=== PATIENT | female | born 1995 | race Caucasian/White ===

== ENCOUNTER 2017-07-08 03:43 | Emergency (ER) | payer OTHER ==
[2017-07-08 07:26] LABS: ADD MAN DIFF? NO
[2017-07-08 07:31] LABS: ADD UMIC YES; BASOPHIL # 0.1 10^3/ul (0.0-0.1); BASOPHILS % 0.5 % (0.0-2.0); EOSINOPHILS # 0.2 10^3/ul (0.0-0.5); EOSINOPHILS % 1.9 % (0.0-7.0); HEMOGLOBIN 11.4 g/dl (12.0-16.0); LYMPHOCYTES # 2.3 10^3/ul (0.8-2.9); LYMPHOCYTES % 23.9 % (15.0-51.0); MEAN CORPUSCULAR HEMOGLOBIN 26.3 pg (29.0-33.0); MEAN CORPUSCULAR HGB CONC 31.7 g/dl (32.0-37.0); MEAN CORPUSCULAR VOLUME 82.9 fl (82.0-101.0); MEAN PLATELET VOLUME 10.2 fl (7.4-10.4); MONOCYTE # 0.6 10^3/ul (0.3-0.9); MONOCYTES % 5.8 % (0.0-11.0); NEUTROPHIL # 6.4 10^3/ul (1.6-7.5); NEUTROPHILS % 67.7 % (39.0-77.0); PLATELET COUNT 404 10^3/UL (140-415); RED BLOOD COUNT 4.34 10^6/ul (4.20-5.40); RED CELL DISTRIBUTION WIDTH 16.1 % (11.5-14.5); UR ASCORBIC ACID NEGATIVE (NEGATIVE); UR BILIRUBIN (Dip) NEGATIVE (NEGATIVE); UR BLOOD (Dip) 2+ mg/dL (NEGATIVE); UR CLARITY CLEAR (CLEAR); UR COLOR YELLOW (YELLOW); UR GLUCOSE (Dip) NEGATIVE (NEGATIVE); UR KETONES (Dip) NEGATIVE (NEGATIVE); UR LEUKOCYTE ESTERASE (Dip) NEGATIVE Leu/ul (NEGATIVE); UR NITRITE (Dip) NEGATIVE (NEGATIVE); UR RBC 0 /HPF (0-5); UR SPECIFIC GRAVITY (Dip) 1.013 (1.003-1.030); UR TOTAL PROTEIN (Dip) NEGATIVE (NEGATIVE); UR UROBILINOGEN (Dip) NEGATIVE (NEGATIVE); UR WBC 0 /HPF (0-5)
[2017-07-08 07:31] LABS: WHITE BLOOD COUNT 9.5 10^3/ul (4.8-10.8)
== END 2017-07-08 08:40 | disposition home or self-care (01) ==
LOC: FTE 03:43
DX: O20.0 Threatened abortion (principal); Z3A.01 Less than 8 weeks gestation of pregnancy
CPT/HCPCS: 36415; 76801; 76817; 81001; 84702; 85025; 86900; 86901; 99284-25

== ENCOUNTER 2017-07-12 07:54 | Emergency (ER) | payer OTHER ==
[2017-07-12] MEDS: ONDANSETRON 4 MG INJ IV ×3 (08:47→14:42)
[2017-07-12] MEDS: HYDROCODONE/APAP (5/325) TAB PO (08:47)
[2017-07-12] MEDS: SOD CHLORIDE 0.9% 1,000 ML IV ×2 (08:48→14:19)
[2017-07-12] MEDS: HYDROmorphONE 1 MG/ML SYG IV ×2 (11:06→14:42)
[2017-07-12 14:42] LABS: ADD MAN DIFF? NO
[2017-07-12 14:43] LABS: BASOPHIL # 0.1 10^3/ul (0.0-0.1); BASOPHILS % 0.4 % (0.0-2.0); EOSINOPHILS # 0.1 10^3/ul (0.0-0.5); EOSINOPHILS % 1.1 % (0.0-7.0); HEMATOCRIT 35.4 % (37.0-47.0); HEMOGLOBIN 11.3 g/dl (12.0-16.0); LYMPHOCYTES # 2.1 10^3/ul (0.8-2.9); LYMPHOCYTES % 17.2 % (15.0-51.0); MEAN CORPUSCULAR HEMOGLOBIN 26.8 pg (29.0-33.0); MEAN CORPUSCULAR HGB CONC 31.9 g/dl (32.0-37.0); MEAN CORPUSCULAR VOLUME 84.1 fl (82.0-101.0); MEAN PLATELET VOLUME 10.9 fl (7.4-10.4); MONOCYTE # 0.7 10^3/ul (0.3-0.9); MONOCYTES % 6.1 % (0.0-11.0); NEUTROPHILS % 74.8 % (39.0-77.0); PLATELET COUNT 420 10^3/UL (140-415); RED BLOOD COUNT 4.21 10^6/ul (4.20-5.40); RED CELL DISTRIBUTION WIDTH 16.2 % (11.5-14.5)
== END 2017-07-12 17:03 | disposition home or self-care (01) ==
LOC: E/R 07:54
DX: O03.4 Incomplete spontaneous abortion without complication (principal); R10.2 Pelvic and perineal pain
CPT/HCPCS: 36415; 76801; 76817; 84702; 85025; 86900; 86901; 96374; 96375; 96376; 99285-25

== ENCOUNTER 2018-05-17 16:39 | Outpatient (CLI) | payer OTHER ==
[2018-05-17 18:05] LABS: ADD UMIC NO; UR ASCORBIC ACID NEGATIVE (NEGATIVE); UR BILIRUBIN (Dip) NEGATIVE (NEGATIVE); UR BLOOD (Dip) NEGATIVE (NEGATIVE); UR CLARITY CLEAR (CLEAR); UR COLOR YELLOW (YELLOW); UR GLUCOSE (Dip) NEGATIVE (NEGATIVE); UR KETONES (Dip) NEGATIVE (NEGATIVE); UR LEUKOCYTE ESTERASE (Dip) NEGATIVE Leu/ul (NEGATIVE); UR NITRITE (Dip) NEGATIVE (NEGATIVE); UR SPECIFIC GRAVITY (Dip) 1.012 (1.003-1.030); UR TOTAL PROTEIN (Dip) NEGATIVE (NEGATIVE); UR UROBILINOGEN (Dip) NEGATIVE (NEGATIVE)
== END 2018-05-17 18:30 | disposition home or self-care (01) ==
LOC: OBT 16:39 → L-D 16:40 → OBT 18:30
DX: O26.892 Other specified pregnancy related conditions, second trimester (principal); Z3A.26 26 weeks gestation of pregnancy; R10.2 Pelvic and perineal pain
CPT/HCPCS: 76815; 76817; 81003

== ENCOUNTER 2018-08-09 12:24 | Outpatient (CLI) | payer OTHER | END 2018-08-09 15:51 | disposition home or self-care (01) | LOC: OBT 12:24 → L-D 12:25 → OBT 15:51 | DX: O36.8130 Decreased fetal movements, third trimester, not applicable or unspecified (principal); Z3A.38 38 weeks gestation of pregnancy | CPT/HCPCS: 76818 ==

== ENCOUNTER 2018-08-15 08:01 | Inpatient (IN) | payer OTHER ==
[2018-08-15] MEDS ORDERED: METHYLERGONOVINE 0.2 MG INJ IM (08:30)
[2018-08-15] MEDS ORDERED: MISOPROSTOL 200 MCG TAB PR (08:30)
[2018-08-15] MEDS ORDERED: CARBOPROST 250 MCG INJ IM (08:30)
[2018-08-15] MEDS ORDERED: LIDOCAINE 1% (MPF) 30 ML INJ INJ (08:30)
[2018-08-15 09:21] LABS: ADD MAN DIFF? NO
[2018-08-15 09:23] LABS: WHITE BLOOD COUNT 8.4 10^3/ul (4.8-10.8)
[2018-08-15 09:23] LABS: BASOPHILS % 0.4 % (0.0-2.0); EOSINOPHILS # 0.1 10^3/ul (0.0-0.5); EOSINOPHILS % 0.6 % (0.0-7.0); HEMATOCRIT 32.4 % (37.0-47.0); LYMPHOCYTES # 1.9 10^3/ul (0.8-2.9); MEAN CORPUSCULAR HEMOGLOBIN 23.8 pg (29.0-33.0); MEAN CORPUSCULAR HGB CONC 30.9 g/dl (32.0-37.0); MEAN CORPUSCULAR VOLUME 77.1 fl (82.0-101.0); MEAN PLATELET VOLUME 11.4 fl (7.4-10.4); MONOCYTE # 0.6 10^3/ul (0.3-0.9); NEUTROPHIL # 5.8 10^3/ul (1.6-7.5); NEUTROPHILS % 68.5 % (39.0-77.0); PLATELET COUNT 409 10^3/UL (140-415); RED CELL DISTRIBUTION WIDTH 16.9 % (11.5-14.5)
[2018-08-15 09:30] LABS: ADD UMIC NO; UR ASCORBIC ACID NEGATIVE (NEGATIVE); UR BACTERIA FEW /HPF (NONE SEEN); UR BILIRUBIN (Dip) NEGATIVE (NEGATIVE); UR BLOOD (Dip) NEGATIVE (NEGATIVE); UR CLARITY SLIGHTLY CLOUDY (CLEAR); UR COLOR AMBER (YELLOW); UR GLUCOSE (Dip) NEGATIVE (NEGATIVE); UR KETONES (Dip) NEGATIVE (NEGATIVE); UR LEUKOCYTE ESTERASE (Dip) NEGATIVE Leu/ul (NEGATIVE); UR MUCUS MANY /HPF (NONE SEEN); UR NITRITE (Dip) NEGATIVE (NEGATIVE); UR RBC 2 /HPF (0-5); UR SPECIFIC GRAVITY (Dip) 1.029 (1.003-1.030); UR SQUAMOUS EPITHELIAL CELL MANY /HPF (FEW); UR TOTAL PROTEIN (Dip) NEGATIVE (NEGATIVE); UR UROBILINOGEN (Dip) NEGATIVE (NEGATIVE); UR WBC 3 /HPF (0-5)
[2018-08-15] MEDS: LACTATED RINGER'S 1,000 ML IV ×2 (09:46→21:52)
[2018-08-15 09:50] LABS: ALANINE AMINOTRANSFERASE 27 IU/L (13-69); ALBUMIN 3.5 g/dl (3.3-4.9); ALBUMIN/GLOBULIN RATIO 1.06; ALKALINE PHOSPHATASE 165 IU/L (42-121); ANION GAP 12 (5-13); ASPARTATE AMINO TRANSFERASE 15 IU/L (15-46); BILIRUBIN,INDIRECT 0.2 mg/dl (0-1.1); BILIRUBIN,TOTAL 0.2 mg/dl (0.2-1.3); BLOOD UREA NITROGEN 7 mg/dl (7-20); CARBON DIOXIDE 20 mmol/L (21-31); CHLORIDE 108 mmol/L (97-110); CREATININE 0.48 mg/dl (0.44-1.00); Estimated GFR > 60 mL/min (>60); GLUCOSE 80 mg/dl (70-220); SODIUM 140 mmol/L (135-144); TOTAL PROTEIN 6.8 g/dl (6.1-8.1)
[2018-08-15 09:53] LABS: INR 0.95; PROTIME 12.8 Sec (11.9-14.9)
[2018-08-15 09:54] LABS: PARTIAL THROMBOPLASTIN TIME 31.6 Sec (23.0-35.0)
[2018-08-15] MEDS: MISOPROSTOL 50 MCG CAPSULE PO ×3 (11:04→23:44)
[2018-08-15 16:45] LABS: RAPID PLASMA REAGIN NONREACTIVE (NR)
[2018-08-16] MEDS: MISOPROSTOL 50 MCG CAPSULE PO (05:52)
[2018-08-16] MEDS: LACTATED RINGER'S 1,000 ML IV ×4 (06:17→17:46)
[2018-08-16] MEDS ORDERED: ROPIVACAINE 0.2% 100 ML (11:22)
[2018-08-16] MEDS ORDERED: DIPHENHYDRAMINE 50 MG INJ IV (11:30)
[2018-08-16] MEDS ORDERED: ONDANSETRON 4 MG INJ IV (11:30)
[2018-08-16] MEDS ORDERED: FENTAnyl 2MCG/ML-ROPIV 0.2% 100 ML BAG EPI (11:30)
[2018-08-16] MEDS ORDERED: ROPIVACAINE 0.2% 100ML BAG EPI (11:30)
[2018-08-16] MEDS ORDERED: NALOXONE (0.4 MG/ML) INJ IV (11:30)
[2018-08-16] MEDS: OXYTOCIN 30 UNITS/LR 500 ML IV ×3 (14:27→18:45)
[2018-08-16] MEDS ORDERED: OXYTOCIN 30 UNITS/LR 500 ML IV ×2 (14:30→21:00)
[2018-08-16] MEDS ORDERED: WITCH HAZEL/GLYCERIN PAD PR (21:00)
[2018-08-16] MEDS ORDERED: DIBUCAINE 1% 30 GM OINT TOP (21:00)
[2018-08-16] MEDS ORDERED: CARBOPROST 250 MCG INJ IM (21:00)
[2018-08-16] MEDS ORDERED: BENZOCAINE 20% 56 ML SPRAY TOP (21:00)
[2018-08-16] MEDS ORDERED: ACETAMINOPHEN 325 MG TAB PO (21:00)
[2018-08-16] MEDS ORDERED: MISOPROSTOL 200 MCG TAB PR (21:00)
[2018-08-16] MEDS: MINERAL OIL LIGHT 10 ML VIAL TOP (21:14)
[2018-08-16] MEDS: SENNA/DOCUSATE NA (8.6MG/50MG) TAB PO (21:36)
[2018-08-16] MEDS: LACTATED RINGER'S 1,000 ML IV* (23:41)
[2018-08-16] MEDS: IBUPROFEN 600 MG TAB PO (23:41)
[2018-08-17] MEDS: LACTATED RINGER'S 1,000 ML IV* ×3 (04:42→20:19)
[2018-08-17] MEDS: IBUPROFEN 600 MG TAB PO ×4 (05:43→23:57)
[2018-08-17 08:01] LABS: ADD MAN DIFF? NO
[2018-08-17 08:07] LABS: BASOPHILS % 0.3 % (0.0-2.0); EOSINOPHILS # 0.1 10^3/ul (0.0-0.5); EOSINOPHILS % 0.7 % (0.0-7.0); HEMATOCRIT 28.2 % (37.0-47.0); HEMOGLOBIN 8.9 g/dl (12.0-16.0); LYMPHOCYTES # 2.2 10^3/ul (0.8-2.9); LYMPHOCYTES % 20.2 % (15.0-51.0); MEAN CORPUSCULAR HEMOGLOBIN 24.2 pg (29.0-33.0); MEAN CORPUSCULAR HGB CONC 31.6 g/dl (32.0-37.0); MEAN CORPUSCULAR VOLUME 76.6 fl (82.0-101.0); MEAN PLATELET VOLUME 11.5 fl (7.4-10.4); MONOCYTES % 8.6 % (0.0-11.0); NEUTROPHIL # 7.7 10^3/ul (1.6-7.5); NEUTROPHILS % 69.8 % (39.0-77.0); PLATELET COUNT 308 10^3/UL (140-415); RED BLOOD COUNT 3.68 10^6/ul (4.20-5.40); RED CELL DISTRIBUTION WIDTH 17.1 % (11.5-14.5)
[2018-08-17] MEDS: HYDROCODONE/APAP (5/325) TAB PO (08:14)
[2018-08-17] MEDS: SENNA/DOCUSATE NA (8.6MG/50MG) TAB PO ×2 (08:14→21:11)
[2018-08-18] MEDS: LACTATED RINGER'S 1,000 ML IV* (04:42)
[2018-08-18] MEDS: IBUPROFEN 600 MG TAB PO ×2 (05:27→12:26)
[2018-08-18] MEDS: DIPHTH/TET/ACEL PERTUSS (ADULT) 0.5 ML VIAL IM* (09:00)
[2018-08-18] MEDS: SENNA/DOCUSATE NA (8.6MG/50MG) TAB PO (09:59)
== END 2018-08-18 14:50 | disposition home or self-care (01) | DRG 807 ==
LOC: L-D 08:01 → PP1 08-16 20:27
PROC: 10E0XZZ Delivery of Products of Conception, External Approach (ICD-10-PCS; principal; 2018-08-16)
DX: O77.0 Labor and delivery complicated by meconium in amniotic fluid (principal); Z37.0 Single live birth; O69.81X0 Labor and delivery complicated by cord around neck, without compression, not applicable or unspecified; Z3A.39 39 weeks gestation of pregnancy
CPT/HCPCS: 62319; 76816; 80053; 81001; 81003; 85025; 85610; 85730; 86592; 86850; 86900; 86901; 99464